=== PATIENT | female | born 1975 | race Two or more races ===

== ENCOUNTER 2017-06-25 05:01 | Day surgery (SDC) | payer OTHER ==
[2017-06-19 12:15] VITALS: BMI 39.1
[2017-06-25] MEDS ORDERED: PROMETHAZINE HCL 25 MG/1 ML VIAL IVPUSH PRN (07:10)
[2017-06-25] MEDS ORDERED: ACETAMINOPHEN INJECTION 100 ML IVPB ONE (07:12)
[2017-06-25] MEDS ORDERED: LACTATED RINGERS SOLUTION 1,000 ML IV SCH ×2 (07:15→11:00)
[2017-06-25] MEDS ORDERED: SUCCINYLCHOLINE CHLORIDE 200 MG/10 ML VIAL ONE (07:21)
[2017-06-25] MEDS ORDERED: ROCURONIUM BROMIDE 50 MG/5 ML VIAL ONE ×2 (07:21→09:14)
[2017-06-25] MEDS ORDERED: LIDOCAINE HCL/PF 2% SDV 5ML VIAL ONE (07:23)
[2017-06-25] MEDS ORDERED: BUPIVACAINE HCL/PF 0.5% (5MG/ML) 10 ML VIAL ONE (07:38)
--- NOTE | 2017-06-25 07:58 | HP ---
History & Physical Update - History History: No Change - Physical Physical: No Change - Assessment Assessment: No Change - Plan Plan: No Change (Severe dysmenorrhea, failed conservative treatment, desires definitive management - for hysterectomy)
[2017-06-25] MEDS ORDERED: MIDAZOLAM HCL 2 MG/2 ML SINGLE DOSE VIAL ONE ×2 (08:11)
[2017-06-25] MEDS ORDERED: DESFLURANE GAS 240 ML BOTTLE IH ONE (08:17)
[2017-06-25] MEDS ORDERED: CEFAZOLIN 2 GM/D5W 50 ML IVPB ONE (08:20)
[2017-06-25] MEDS ORDERED: oxyCODONE HCL 5 MG TABLET PO PRN (08:21)
[2017-06-25] MEDS ORDERED: ACETAMINOPHEN 325 MG TABLET (FP) PO PRN (08:21)
[2017-06-25] MEDS ORDERED: IBUPROFEN 800 MG/8 ML IJ IVPB PRN (08:21)
[2017-06-25] MEDS ORDERED: SENNOSIDES/DOCUSATE COMBO (SENNA PLUS) TABLET (UD) PO PRN (08:21)
[2017-06-25] MEDS ORDERED: ESMOLOL HCL 10 ML ONE (08:24)
[2017-06-25] MEDS ORDERED: ceFAZolin SODIUM 1 GM VIAL ONE (08:25)
[2017-06-25] MEDS ORDERED: DEXAMETHASONE SOD PHOSPHATE 4 MG/1 ML VIAL ONE (08:25)
[2017-06-25] MEDS ORDERED: ceFAZolin SODIUM 1 GM VIAL IVPB ONE (08:45)
[2017-06-25] MEDS ORDERED: GLYCOPYRROLATE 0.2 MG/1 ML VIAL ONE ×2 (09:09)
[2017-06-25] MEDS ORDERED: NEOSTIGMINE METHYLSULFATE 0.5 MG/ML - 10 ML MDV ONE (09:10)
--- NOTE | 2017-06-25 10:57 | OP ---
Operative Note - Note: Operative Date: 06/25/17 Pre-Operative Diagnosis: dysmenorrhea, fibroids Operation: Robotic Assisted TLH, Bilateral Salpingectomy, cystoscopy Findings: fibroid uterus normal b/l tubes and ovaries Post-Operative Diagnosis: Same as Pre-op Surgeon: Bridgett Amin Bulk Intake Worker: Cleo Saleh Anesthesiologist/PAPER REEL OPERATOR: Rosalio John Anesthesia: General Specimens Removed: uterus, cervix, bilateral fallopian tubes Estimated Blood Loss (mls): 400 Operative Report Dictated: Yes
[2017-06-25] MEDS ORDERED: IBUPROFEN 800 MG/8 ML IJ IVPB ONE (11:27)
[2017-06-25] MEDS ORDERED: PCA PUMP KEY 1 EACH EACH ONE (14:19)
[2017-06-25] MEDS: oxyCODONE HCL 5 MG TABLET PO PRN (15:10)
[2017-06-25] MEDS: SIMETHICONE 80 MG TAB.CHEW (FP) PO PRN (19:34)
[2017-06-26] MEDS: SIMETHICONE 80 MG TAB.CHEW (FP) PO PRN ×3 (00:18→10:17)
[2017-06-26] MEDS: oxyCODONE HCL 5 MG TABLET PO PRN ×3 (00:19→10:15)
[2017-06-26] MEDS: IBUPROFEN 600 MG TABLET (FP) PO PRN ×3 (00:28→10:16)
--- NOTE | 2017-06-26 08:09 | PN ---
Progress Note (short form) - Note Progress Note: 41 yo with h/o fibroid uterus, is status post robotic assisted TLH. Patient seen and evaluated, she's out of bed to chair. She c/o incision pain. PE : Chest : CTA, no rales ABD : + incision pain, Wound clean and dry EXT : No calft tenderness A/P : Status post robotic assisted TLH Analgesia as needed Continue post op care
--- NOTE | 2017-06-26 08:15 | PN ---
Progress Note, Physician Chief Complaint: s/p robotic total hysterectomy under general anesthesia History of Present Illness: post op day one - Current Medication List Current Medications: Active Medications Acetaminophen (Tylenol -) 650 mg PO Q4H PRN PRN Reason: FEVER OR PAIN Last Admin: 06/25/17 19:35 Dose: 650 mg Enoxaparin Sodium (Lovenox -) 40 mg SQ DAILY ELIER Lactated Ringer's (Lactated Ringers Solution) 1,000 mls @ 125 mls/hr IV ASDIR ELIER Last Admin: 06/25/17 22:20 Dose: 125 mls/hr Ibuprofen (Caldolor Injection -) 800 mg IVPB Q8H PRN PRN Reason: PAIN OR FEVER Last Admin: 06/25/17 11:30 Dose: 800 mg Ibuprofen (Motrin -) 600 mg PO Q4H PRN PRN Reason: PAIN Last Admin: 06/26/17 06:15 Dose: 600 mg Oxycodone HCl (Roxicodone -) 5 mg PO Q4H PRN PRN Reason: PAIN LEVEL 1-5 Last Admin: 06/26/17 06:14 Dose: 5 mg Oxycodone HCl (Roxicodone -) 10 mg PO Q4H PRN PRN Reason: PAIN LEVEL 6-10 Last Admin: 06/25/17 19:35 Dose: 10 mg Senna/Docusate Sodium (Pericolace -) 2 tablet PO HS PRN PRN Reason: CONSTIPATION Simethicone (Mylicon -) 80 mg PO Q4H PRN PRN Reason: GAS Last Admin: 06/26/17 06:13 Dose: 80 mg - Objective Vital Signs: Vital Signs Temperature 98.1 F 06/26/17 06:00 Pulse Rate 68 06/26/17 06:00 Respiratory Rate 18 06/26/17 06:00 Blood Pressure 126/54 06/26/17 06:00 O2 Sat by Pulse Oximetry (%) 99 06/25/17 21:00 Constitutional: Yes: Well Nourished Cardiovascular: Yes: WNL Respiratory: Yes: WNL Gastrointestinal: Yes: WNL Assessment/Plan no adverse reaction from anesthetic, no nausea or vomiting, pain is well controlled by analgesics as ordered by primary team, dept of anesthesia will sign off care at this time
[2017-06-26 08:22] LABS: BASOPHIL 0.6 % (0-2.0); EOSINOPHIL 0.5 % (0-4.5); MCH 29.8 pg (25.7-33.7); MCHC 33.7 g/dl (32.0-36.0); MEAN CELL VOLUME 88.4 fl (80-96); MEAN PLT VOLUME 7.8 fl (7.5-11.1); NEUTROPHILS 65.2 % (42.8-82.8); PLATELET COUNT 250 K/MM3 (134-434); RDW 13.1 % (11.6-15.6); WHITE BLOOD COUNT 12.1 K/mm3 (4.0-10.0)
[2017-06-26] MEDS ORDERED: ENOXAPARIN NA (PORCINE) 40 MG/0.4 ML DISP.SYRIN SQ SCH (10:00)
--- NOTE | 2017-06-26 10:36 | OP ---
DATE OF OPERATION: 06/25/2017 PREOPERATIVE DIAGNOSES: Dysmenorrhea and fibroids. POSTOPERATIVE DIAGNOSES: Dysmenorrhea and fibroids. PROCEDURE: Robotic-assisted total laparoscopic hysterectomy, bilateral salpingectomy, cystoscopy. SURGEON: Bridgett Up DO LOCAL TRUCK DRIVER: Cleo Saleh MD ANESTHESIA: General by Rosalio John MD. COMPLICATIONS: None. ESTIMATED BLOOD LOSS: 400 mL SPECIMENS REMOVED: Included uterus, cervix, and bilateral fallopian tubes. COUNTS: Sponge, needle, and instrument count reported to be correct. DISPOSITION: Stable to PACU. BRIEF HISTORY AND PROCEDURE: Patient is a 41-year-old female who has been complaining of several years of severely painful periods and fibroids. The patient was given multiple conservative options including hormonal therapy and NSAID therapy for which she failed. The patient expressed desire for definitive management. Patient was counseled on her options and elected to undergo robotic-assisted total hysterectomy, bilateral salpingectomy. Consents were signed in the office. The patient was brought to [facility] on June 25, 2017. Consents were confirmed upon admission . The patient was then taken back to the operating room. She was given general anesthesia and placed in the dorsal lithotomy position. A Boston catheter was placed under sterile conditions, and then, a hard timeout was performed. Next, a V-Care manipulator was placed inside the cervix, and then, attention was turned to the abdomen where an 8-mm infraumbilical incision was created. A Veress needle was placed in the abdomen, and the abdomen was inflated with carbon dioxide gas. Next, the remaining 4 trocars were placed under direct visualization. The robot was then docked. Attention was turned to the left side of the uterus where the utero-ovarian ligament was identified, clamped, ligated, and cut with the vessel-sealer device. The round ligament was then clamped, cut, and ligated with the vessel-sealer device, and the bladder flap was begun on the left side, then extended anteriorly to the midline. Next, the fallopian tube and remainder of utero-ovarian anastamosis was clamped, cut and ligated with the Vessel-sealer device. At this point, the uterine arteries were dissected and skeletonized, then clamped, ligated and cut in several passes with the vessel-sealer device to the level of the uterosacral ligaments. Attention was then turned to the right side where the utero-ovarian anastomosis was identified, clamped, cut, and ligated in several passes with the vessel-sealer device until the complete utero-ovarian artery was ligated and cut. The round ligament on the right side was clamped, ligated, and cut, and the anterior bladder flap was created on the right side, meeting in the midline where the prior bladder flap had been started. The uterine arteries on the right side were skeletonized, clamped , cut, and ligated in several passes with the vessel-sealer device until we reached the level of the uterosacral ligaments. At this point, an anterior colpotomy was made and extended in a circumferential fashion in 360-degree manner until the uterus was detached from its attachments to the cervicovaginal junction. The uterus was removed through the vagina without difficulty. Any areas of bleeding on the vaginal cuff were cauterized with bipolar cautery. The vaginal cuff was reapproximated in a running locked fashion using 0 V-Loc suture. Excellent hemostasis was achieved. Attention was then turned to the fallopian tubes which were elevated and dissected off their attachments to the ovary and the mesosalpinx using the vessel-sealer device. They were removed through the 8-mm ports under direct visualization. All instruments and needles and sponges were removed from the abdomen. Again, hemostasis was appreciated at the surgical site. Bilateral ureters were inspected. The right one was easily visualized and noted to be peristalsing normally and of normal caliber. The left was not easily visualized at this time, and it was decided to perform a cystoscopy at this point. Attention was turned below where a cystoscope was placed inside the bladder. Bladder was instilled with approximately 250 mL of normal saline solution. Bilateral ureteral orifices were noted and were noted to be within normal caliber, and bilateral ureteral jets were appreciated at this time. No bladder trauma was appreciated in a global view of the bladder. The cystoscope was removed at this time. The abdomen was desufflated. The trocars were removed. The skin was reapproximated using 0 Biosyn suture and skin glue. All sponge, needle, and instrument counts were reported correct. varun was awoken from anesthesia in stable condition and taken to PACU in good condition at this time. BRIDGETT UP DO /[id number] [facility]ITAL[facility]
[2017-06-26 11:42] VITALS: BP 117/56; PULSE 83; TEMP 98.9
--- NOTE | 2017-06-26 12:04 | DS ---
Physical Examination Vital Signs: Vital Signs Temperature 98.9 F 06/26/17 10:00 Pulse Rate 83 06/26/17 10:00 Respiratory Rate 20 06/26/17 10:00 Blood Pressure 117/56 06/26/17 10:00 O2 Sat by Pulse Oximetry (%) 99 06/25/17 21:00 Labs: CBC, BMP 06/26/17 07:45 Discharge Summary Reason For Visit: ADENOMYOSISAUB,PELVIC PAIN Procedures: Principal: Robotic Assisted TLH, Bilateral Salpingectomy Hospital Course: Pt underwent uncomplicated procedure (see dictated report). On post op day 1 patient was tolerating diet, ambulating, voiding and passing flatus. Pt was discharged home in stable condition on post operative day 1. Condition: Good - Instructions Diet, Activity, Other Instructions: Physical activity Resume your normal everyday activity as tolerated but no heavy lifting or strenuous exercise until seen by your surgeon. You may walk unlimited amounts and climb stairs. You may resume driving the car when you feel safe and comfortable behind the wheel - usually about 2 weeks. No sexual activity as instructed by Dr. Amin for at least 8 weeks. Wound care If you have surgical glue covering your incisions, leave it in place. It will peel off in the next 7 to 10 days. Do Not Peel tit off. You may shower the day after surgery. If there is glue present on the skin, you may shower over it. Diet There are no dietary restrictions. Eat healthy, high-fiber foods. Drink 6 to 8 glasses of liquid each day. This will assist in keeping your bowels regular. Pain management You may take Tylenol or Ibuprofen (for example, Motrin, Advil etc.) for mild pain. If any prescription medication is ordered to your pharmacy it should be taken as prescribed for moderate to severe pain. Call Dr. Amin for any of the following: Severe pain not relieved by medication Fever of 101 or higher Excessive bleeding or drainage on dressing Inability to urinate Call the office at [phone] for an appointment in 14 days. Referrals: Bridgett Amin DO [Staff Physician] - Disposition: HOME - Home Medications Comprehensive Discharge Medication List: Ambulatory Orders Ibuprofen [Motrin -] 800 mg PO QID PRN 06/19/17 Ibuprofen [Motrin -] 600 mg PO QID PRN #28 tablet 06/26/17 Oxycodone HCl/Acetaminophen [Percocet 5-325 mg Tablet -] 1 tab PO Q4H #30 tablet MDD 6 06/26/17
--- NOTE | 2017-06-26 16:05 | PATH ---
Surgical Pathology Report Patient Name: FLACO COOPER [facility]. Rec. #: [id number] /Age/Gender: 1975 (Age: 41) / F Account: [id number] Location: AMBULATORY SURG Taken: 06/25/2017 Received: 06/25/2017 Reported: 06/26/2017 Physicians: Bridgett Amin M.D. Specimen(s) Received A: UTERUS AND CERVIX B: RIGHT FALLOPIAN TUBE C: LEFT FALLOPIAN TUBE Clinical History Pelvic pain Final Diagnosis A. UTERUS, CERVIX, LAPAROSCOPIC TOTAL HYSTERECTOMY: CERVIX: CHRONIC CERVICITIS. ENDOMETRIUM: SECRETORY. MYOMETRIUM: ADENOMYOSIS, LEIOMYOMATA (LARGEST 2.7 CM). UTERINE SEROSA: WITHOUT SIGNIFICANT PATHOLOGIC CHANGES. B. FALLOPIAN TUBE, RIGHT, SALPINGECTOMY: BENIGN FALLOPIAN TUBE WITH SMALL PARATUBAL CYST AND FOCAL FIBRINOHEMORRHAGIC ADHESIONS. C. FALLOPIAN TUBE, LEFT, SALPINGECTOMY: FRAGMENTS OF BENIGN FALLOPIAN TUBE WITH FOCAL FIBROVASCULAR ADHESIONS. Electronically Signed See Serrano M.D. Gross Description A. Received in formalin labeled "uterus, cervix" is a 213 g uterus with an attached cervix and no attached adnexa. The specimen measures 11.7 cm from superior to inferior, 6.5 cm from left to right and 5.5 cm from anterior to posterior. The serosa is sanders-pink with focal subserosal nodules. The attached cervix measures 3.5 cm in length and averages 3.2 cm in diameter. The ectocervix is pink-sanders, smooth and glistening. The endocervix is unremarkable. The endometrial cavity measures 5.5 cm in length and 3.7 cm from cornu to cornu. The endometrium is sanders and lush, measuring up to 0.6 cm in thickness. There are multiple intramural nodules present, measuring up to 2.7 cm in greatest dimension. The cut surface of the subserosal and intramural nodules is sanders, firm to rubbery and displays a whorled architecture. No areas of hemorrhage or necrosis are identified. The myometrium is sanders-pink and averages 2.2 cm in thickness. Clinical Director sections are submitted in 9 cassettes as follows: 1-anterior cervix; 2-posterior cervix; 8-7-ocwqnqoe endomyometrium; 5-7-zawdnkfzo endomyometrium; 7-subserosal nodules; 8-2-kciohltfaa nodules. B. Received in formalin labeled "right fallopian tube" is a 2.2 cm in length fimbriated portion of fallopian tube. The outer surface is sanders-pink. Sectioning reveals a pinpoint lumen. Clinical Director sections are submitted in 2 cassettes as follows: 1-fimbria; 2-cross sections of fallopian tube. C. Received in formalin labeled "left fallopian tube" are 2 portions of fallopian tube measuring 1.4 and 2.2 cm in length. No fimbria are identified. The outer surfaces are sanders-pink. Sectioning reveals a pinpoint lumen. Clinical Director sections are submitted in one cassette. 06/25/2017 [facility]06/25/2017
== END 2017-06-26 12:36 | disposition home or self-care (01) ==
LOC: JASUSAT 05:01 → J3W 14:10 → JASUSAT 06-26 12:36
PROVIDERS: ATTEND Obstetrics & Gynecology
PROC: 0UT2FZZ Resection of Bilateral Ovaries, Via Natural or Artificial Opening With Percutaneous Endoscopic Assistance (ICD-10-PCS; 2017-06-25)
PROC: 0UT7FZZ Resection of Bilateral Fallopian Tubes, Via Natural or Artificial Opening With Percutaneous Endoscopic Assistance (ICD-10-PCS; 2017-06-25)
PROC: 8E0W4CZ Robotic Assisted Procedure of Trunk Region, Percutaneous Endoscopic Approach (ICD-10-PCS; 2017-06-25)
PROC: 0UT9FZZ Resection of Uterus, Via Natural or Artificial Opening With Percutaneous Endoscopic Assistance (ICD-10-PCS; principal; 2017-06-25 08:00)
PROC: 0UTC7ZZ Resection of Cervix, Via Natural or Artificial Opening (ICD-10-PCS; 2017-06-25 08:00)
DX: N94.6 Dysmenorrhea, unspecified (principal); D25.9 Leiomyoma of uterus, unspecified
CPT/HCPCS: 58552; S2900; 36415; 84703; 85025; 86850; 86900; 86901; 88305-TC; 88307-TC; 94760

== ENCOUNTER 2019-04-20 17:29 | Emergency (ER) | payer OTHER | END 2019-04-20 23:47 | disposition home or self-care (01) | LOC: JER 17:29 ==

== ENCOUNTER 2019-09-10 21:10 | Emergency (ER) | payer OTHER ==
[2019-09-10] MEDS ORDERED: ALBUTEROL SO4 2.5/IPRATROPIUM 0.5 INH SOL 3 ML VIAL.NEB. NEB ONE ×2 (21:13→21:21)
--- NOTE | 2019-09-10 21:13 | PDOC ---
Rapid Medical Evaluation Time Seen by Provider: 09/10/19 21:12 Medical Evaluation: Allergies Allergy/AdvReac Type Severity Reaction Status Date / Time No Known Allergies Allergy Verified 04/20/19 17:34 09/10/19 21:12 I have performed a brief in-person evaluation of this patient. The patient presents with a chief complaint of: cough Pertinent physical exam findings:stable and in NAD, non-focal I have ordered the following: duoneb The patient will proceed to the ED for further evaluation.
[2019-09-10 21:18] VITALS: BP 109/66; PULSE 90; TEMP 98.9; BMI 33.4
--- NOTE | 2019-09-10 23:04 | PDOC ---
History of Present Illness - General Chief Complaint: Cold Symptoms Stated Complaint: COUGH Time Seen by Provider: 09/10/19 21:12 - History of Present Illness Initial Comments: 09/10/19 23:03 44-year-old female presents for evaluation of cough and body aches x1 day Past History - Past Medical History Allergies/Adverse Reactions: Allergies Allergy/AdvReac Type Severity Reaction Status Date / Time No Known Allergies Allergy Verified 09/10/19 21:12 Home Medications: Ambulatory Orders Ibuprofen [Motrin -] 800 mg PO QID PRN 06/19/17 Ibuprofen [Motrin -] 600 mg PO QID PRN #28 tablet 06/26/17 Oxycodone HCl/Acetaminophen [Percocet 5-325 mg Tablet -] 1 tab PO Q4H #30 tablet MDD 6 06/26/17 Asthma: Yes (bronchitis) COPD: No Disorders: No Thyroid Disease: No - Surgical History Appendectomy: Yes Orthopedic Surgery: No - Psycho Social/Smoking Cessation Hx Smoking History: Former smoker Have you smoked in the past 12 months: No Number of Cigarettes Smoked Daily: 10 If you are a former smoker, when did you quit?: 5YRS Information on smoking cessation initiated: No Hx Alcohol Use: No Drug/Substance Use Hx: No Substance Use Type: None Hx Substance Use Treatment: No Review of Systems - Review of Systems Constitutional: No: Fever Respiratory: Yes: Cough *Physical Exam - Vital Signs Last Vital Signs Temp Pulse Resp BP Pulse Ox 98.9 F 90 24 H 109/66 96 09/10/19 21:12 09/10/19 21:12 09/10/19 21:12 09/10/19 21:12 09/10/19 21:12 - Physical Exam Comments: 09/10/19 23:03 GENERAL: The patient is awake, alert, and fully oriented, in no acute distress. HEAD: Normal with no signs of trauma. EYES: sclera anicteric, conjunctiva clear. ENT: Ears normal NECK: Normal range of motion LUNGS: Breath sounds equal, clear to auscultation bilaterally. No wheezes, and no crackles. HEART: S1 and S2 without murmur, rub or gallop. ABDOMEN: Soft, nontender, normoactive bowel sounds. No guarding, no rebound. No masses. EXTREMITIES: Normal range of motion, no edema. No clubbing or cyanosis. No cords, erythema, or tenderness. NEUROLOGICAL: Cranial nerves II through XII grossly intact. Normal speech, normal gait. PSYCH: Normal mood, normal affect. SKIN: Warm, Dry, normal turgor, no rashes or lesions noted. ED Treatment Course - RADIOLOGY Radiology Studies Ordered: Category Date Time Status CHEST PA & LAT [RAD] Stat Radiology 09/10/19 22:28 Ordered - Medications Given in the ED: ED Medications Discontinued Medications Generic Name Dose Route Start Last Admin Trade Name Freq PRN Reason Stop Dose Admin Albuterol/Ipratropium 1 amp 09/10/19 21:13 09/10/19 21:25 Duoneb - NEB 09/10/19 21:14 1 amp ONCE ONE Administration Medical Decision Making - Medical Decision Making 09/10/19 23:03 Negative flu no infiltrate on radiograph of chest most likely upper respiratory infection follow-up with PCP Discharge - Discharge Information Problems reviewed: Yes Clinical Impression/Diagnosis: Upper respiratory infection, acute Condition: Stable Disposition: HOME - Admission No - Follow up/Referral Referrals: Eduardo Hoover MD [Primary Care Provider] - - Patient Discharge Instructions Patient Printed Discharge Instructions: DI for Viral Upper Respiratory Infection -- Adult Additional Instructions: Tylenol and Motrin for body aches. Your flu was negative. Chest x-ray was negative for pneumonia. Follow-up with your primary care physician without fail in 1 to 2 days for further evaluation and treatment options and return to the emergency room should symptoms worsen. - Post Discharge Activity
== END 2019-09-10 23:21 | disposition home or self-care (01) ==
LOC: JERFT 21:10
PROC: 3E0F7GC Introduction of Other Therapeutic Substance into Respiratory Tract, Via Natural or Artificial Opening (ICD-10-PCS; principal; 2019-09-10)
DX: J06.9 Acute upper respiratory infection, unspecified (principal); Z87.891 Personal history of nicotine dependence; J40 Bronchitis, not specified as acute or chronic
CPT/HCPCS: 71046-TC-FY; 87804; 94640; 99281-25

== ENCOUNTER 2019-12-26 19:40 | Emergency (ER) | payer OTHER ==
[2019-12-26] MEDS ORDERED: predniSONE 20 MG TABLET (UD) PO ONE (19:53)
--- NOTE | 2019-12-26 19:53 | PDOC ---
Rapid Medical Evaluation Chief Complaint: Respiratory Time Seen by Provider: 12/26/19 19:50 Medical Evaluation: Allergies Allergy/AdvReac Type Severity Reaction Status Date / Time No Known Allergies Allergy Verified 09/10/19 21:12 12/26/19 19:51 I have performed a brief in-person evaluation of this patient. The patient presents with a chief complaint of:h/o asthma, here w/ URI sxs w/ sob c/w her asthma per pt/ using asthma meds w/ no relief. Former smoker (quit 8 yrs ago after ~13 years) Pertinent physical exam findings:Wheezing on exam I have ordered the following:duonebs/pred The patient will proceed to the ED for further evaluation. Discharge Disposition - Diagnosis Asthma Qualifiers: Asthma severity: unspecified severity Asthma persistence: unspecified Asthma complication type: with acute exacerbation Qualified Code(s): J45.901 - Unspecified asthma with (acute) exacerbation - Referrals - Patient Instructions - Post Discharge Activity
[2019-12-26 20:01] VITALS: TEMP 99.5; BMI 37.2
[2019-12-26] MEDS ORDERED: predniSONE 20 MG TABLET (UD) ONE (20:42)
[2019-12-26] MEDS ORDERED: ALBUTEROL SO4 2.5/IPRATROPIUM 0.5 INH SOL 3 ML VIAL.NEB. NEB ONE (20:42)
--- NOTE | 2019-12-26 20:45 | PDOC ---
History of Present Illness - General Chief Complaint: Respiratory Stated Complaint: COUGH Time Seen by Provider: 12/26/19 19:50 - History of Present Illness Initial Comments: 12/26/19 20:44 44-year-old female with a past medical history of asthma presents for evaluation of cough and fever x4 days Past History - Past Medical History Allergies/Adverse Reactions: Allergies Allergy/AdvReac Type Severity Reaction Status Date / Time No Known Allergies Allergy Verified 12/26/19 19:55 Home Medications: Ambulatory Orders Ibuprofen [Motrin -] 800 mg PO QID PRN 06/19/17 Ibuprofen [Motrin -] 600 mg PO QID PRN #28 tablet 06/26/17 Oxycodone HCl/Acetaminophen [Percocet 5-325 mg Tablet -] 1 tab PO Q4H #30 tablet MDD 6 06/26/17 Albuterol 0.083% Nebulizer Sary [Ventolin 0.083% Nebulizer Soln -] 1 neb NEB Q4H PRN #20 vial 09/10/19 Nebulizer and Compressor [Bison Choice Nebulizer] 1 each ASDIR #1 each 09/10 Azithromycin [Zithromax -] 250 mg PO UTDICT #6 tab 12/26/19 Guaifenesin Dm [Mucinex Dm -] 1 tab PO BID #60 tab.er.12h 12/26/19 predniSONE [Deltasone -] 40 mg PO DAILY #14 tablet 12/26/19 Asthma: Yes (bronchitis) COPD: No Disorders: No Thyroid Disease: No - Surgical History Appendectomy: Yes Orthopedic Surgery: No - Psycho Social/Smoking Cessation Hx Smoking History: Former smoker Have you smoked in the past 12 months: No Number of Cigarettes Smoked Daily: 10 If you are a former smoker, when did you quit?: 8 years Information on smoking cessation initiated: No Hx Alcohol Use: No Drug/Substance Use Hx: No Substance Use Type: None Hx Substance Use Treatment: No Review of Systems - Review of Systems Constitutional: Yes: Chills, Diaphoresis, Fever, Malaise, Night Sweats Respiratory: Yes: Cough *Physical Exam - Vital Signs Last Vital Signs Temp Pulse Resp BP Pulse Ox 99.5 F 93 H 20 127/74 98 12/26/19 19:51 12/26/19 19:51 12/26/19 19:51 12/26/19 19:51 12/26/19 19:51 - Physical Exam 12/26/19 20:45 GENERAL: The patient is awake, alert, and fully oriented, in no acute distress. HEAD: Normal with no signs of trauma. EYES: sclera anicteric, conjunctiva clear. ENT: Ears normal tympanic membranes normal oropharynx clear uvula midline NECK: Normal range of motion LUNGS: Diffuse bilateral wheezing HEART: S1 and S2 without murmur, rub or gallop. ABDOMEN: Soft, nontender, normoactive bowel sounds. No guarding, no rebound. No masses. EXTREMITIES: Normal range of motion, no edema. No clubbing or cyanosis. No cords, erythema, or tenderness. NEUROLOGICAL: Cranial nerves II through XII grossly intact. PSYCH: Normal mood, normal affect. SKIN: Warm, Dry, normal turgor, no rashes or lesions noted. ED Treatment Course - RADIOLOGY Radiology Studies Ordered: Category Date Time Status CHEST PA & LAT [RAD] Stat Radiology 12/26/19 20:24 Taken Medical Decision Making - Medical Decision Making 12/26/19 20:45 No discrete infiltrate on chest x-ray. Will start the DuoNeb treatments providing she clears up I will discharge her with Zithromax Mucinex DM and prednisone 12/26/19 22:19 No wheezing on reexamination after DuoNeb's. Mild bibasilar rhonchi Discharge - Discharge Information Problems reviewed: Yes Clinical Impression/Diagnosis: Bronchitis Asthma Qualifiers: Asthma severity: unspecified severity Asthma persistence: unspecified Asthma complication type: with acute exacerbation Qualified Code(s): J45.901 - Unspecified asthma with (acute) exacerbation Condition: Stable Disposition: HOME - Admission No - Additional Discharge Information Prescriptions: Azithromycin [Zithromax -] 250 mg PO UTDICT #6 tab Guaifenesin Dm [Mucinex Dm -] 1 tab PO BID #60 tab.er.12h predniSONE [Deltasone -] 40 mg PO DAILY #14 tablet - Follow up/Referral Referrals: Eduardo Hoover MD [Primary Care Provider] - - Patient Discharge Instructions Patient Printed Discharge Instructions: DI for Acute Bronchitis Additional Instructions: Please take the antibiotics the Mucinex and the prednisone as directed. Return to the emergency room for worsening symptoms your influenza swab was negative today. Follow-up without fail with your primary care physician in 1 to 2 days for further evaluation and treatment options. - Post Discharge Activity
[2019-12-26] MEDS: ALBUTEROL SO4 2.5/IPRATROPIUM 0.5 INH SOL 3 ML VIAL.NEB. NEB SCH ×2 (20:47→20:48)
[2019-12-26 23:26] VITALS: BP 122/87; PULSE 99
== END 2019-12-26 23:00 | disposition home or self-care (01) ==
LOC: JERFT 19:40
PROC: 3E0F7GC Introduction of Other Therapeutic Substance into Respiratory Tract, Via Natural or Artificial Opening (ICD-10-PCS; principal; 2019-12-26)
DX: J06.9 Acute upper respiratory infection, unspecified (principal); J45.901 Unspecified asthma with (acute) exacerbation; Z87.891 Personal history of nicotine dependence
CPT/HCPCS: 71046-TC-FY; 87804; 94640; 99281-25

== ENCOUNTER 2019-12-27 21:04 | Emergency (ER) | payer OTHER ==
[2019-12-27 21:13] VITALS: BP 106/52; PULSE 79; TEMP 99.1; BMI 38.3
[2019-12-27] MEDS ORDERED: ACETAMINOPHEN 325 MG TABLET (FP) PO ONE (22:18)
--- NOTE | 2019-12-27 22:18 | PDOC ---
History of Present Illness - General Chief Complaint: Cold Symptoms Stated Complaint: COUGH Time Seen by Provider: 12/27/19 22:06 History Source: Patient Exam Limitations: No Limitations - History of Present Illness Initial Comments: 12/27/19 22:44 Chief complaint: Asthma Patient 44-year-old female with asthma who was seen in the ER yesterday, for URI. Had chest x-ray, had nebulizer, put on steroids, Zithromax. Patient was given Mucinex DM. Patient returns tonight because the albuterol makes her jittery, prednisone makes her jittery and she feels worse. She does not want to use the meds because they make her feel worse. She has not had this problem before. GENERAL/CONSTITUTIONAL: No fever, weakness. dizziness HEAD, EYES, EARS, NOSE AND THROAT: No change in vision. No ear pain or discharge. No sore throat. CARDIOVASCULAR: No chest pain RESPIRATORY: No shortness of breath + cough GASTROINTESTINAL: No pain, nausea, vomiting, diarrhea or constipation GENITOURINARY: No dysuria MUSCULOSKELETAL: No neck or back pain SKIN: No rash NEUROLOGIC: No headache, vertigo, loss of consciousness, or loss of sensation. GENERAL: The patient is awake, alert, and fully oriented, in no acute distress. HEAD: Normal with no signs of trauma. EYES: Pupils equal, round and reactive to light, sclera anicteric, conjunctiva clear. ENT: + Clear rhinorrhea pharynx: no erythema, no exudate, uvula midline NECK: supple CHEST: clear, nontender, rr ABD: soft, nontender BACK: no tenderness or signs of injury EXTREMITIES: Normal range of motion, no edema. NEUROLOGICAL: Normal speech, normal gait. SKIN: Warm, Dry Past History - Past Medical History Allergies/Adverse Reactions: Allergies Allergy/AdvReac Type Severity Reaction Status Date / Time No Known Allergies Allergy Verified 12/26/19 19:55 Home Medications: Ambulatory Orders Ibuprofen [Motrin -] 800 mg PO QID PRN 06/19/17 Ibuprofen [Motrin -] 600 mg PO QID PRN #28 tablet 06/26/17 Oxycodone HCl/Acetaminophen [Percocet 5-325 mg Tablet -] 1 tab PO Q4H #30 tablet MDD 6 06/26/17 Albuterol 0.083% Nebulizer Sary [Ventolin 0.083% Nebulizer Soln -] 1 neb NEB Q4H PRN #20 vial 09/10/19 Nebulizer and Compressor [Turner Choice Nebulizer] 1 each ASDIR #1 each 09/10 Albuterol 0.083% Nebulizer Sary [Ventolin 0.083% Nebulizer Soln -] 1 neb NEB Q4H PRN #20 vial 12/26/19 Azithromycin [Zithromax -] 250 mg PO UTDICT #6 tab 12/26/19 Guaifenesin Dm [Mucinex Dm -] 1 tab PO BID #60 tab.er.12h 12/26/19 predniSONE [Deltasone -] 40 mg PO DAILY #14 tablet 12/26/19 Hydrocodone Bit/Homatrop Me-Br [Hydrocodone-Homatropine Syrup] 5 ml PO HS PRN # 60 ml MDD 2 12/27/19 Asthma: Yes (bronchitis) COPD: No Disorders: No Thyroid Disease: No - Surgical History Appendectomy: Yes Orthopedic Surgery: No - Psycho Social/Smoking Cessation Hx Smoking History: Former smoker Have you smoked in the past 12 months: No Number of Cigarettes Smoked Daily: 10 If you are a former smoker, when did you quit?: 5YRS Information on smoking cessation initiated: No Hx Alcohol Use: No Drug/Substance Use Hx: No Substance Use Type: None Hx Substance Use Treatment: No *Physical Exam - Vital Signs Last Vital Signs Temp Pulse Resp BP Pulse Ox 99.1 F 79 19 106/52 L 96 12/27/19 21:08 12/27/19 21:08 12/27/19 21:08 12/27/19 21:08 12/27/19 21:08 Medical Decision Making - Medical Decision Making 12/27/19 22:31 44-year-old female with asthma who was seen yesterday, was given Zithromax, albuterol, Mucinex dm, prednisone. Patient states the albuterol and the prednisone are making her jittery. She does not want to use them. She feels worse today. Patient is not wheezing. Patient has no signs of respiratory distress, she has no fever. She has a very runny nose and cough. 12/27/19 22:45 Discussed with patient, recommended that she use half the dose of albuterol, mixed with saline to decrease the jitteriness. As she is not wheezing now and she can probably use the medication this way. I also recommended that she take the prednisone 20 mg every 12 hours for maximum of 5 days. She will discontinue the Mucinex and take Hycodan at bedtime It was fully explained to patient that cough medicine does not treat asthma, that she needs to use her albuterol to treat the wheezing. The cough medicine is just to help her with the cough when she is not wheezing. She is aware that treating the wheezing with the cough medicine is dangerous. Discussed issues, findings, results, applicable medications and treatments and follow-up. All these were understood and all questions were answered 12/27/19 22:52 Discharge - Discharge Information Problems reviewed: Yes Clinical Impression/Diagnosis: Upper respiratory infection, acute Asthma Qualifiers: Asthma severity: mild Asthma persistence: unspecified Asthma complication type : uncomplicated Qualified Code(s): J45.909 - Unspecified asthma, uncomplicated Condition: Stable Disposition: HOME - Admission No - Additional Discharge Information Prescriptions: Hydrocodone Bit/Homatrop Me-Br [Hydrocodone-Homatropine Syrup] 5 ml PO HS PRN # 60 ml MDD 2 PRN Reason: Cough - Follow up/Referral Referrals: Eduardo Hoover MD [Primary Care Provider] - - Patient Discharge Instructions Patient Printed Discharge Instructions: DI for Asthma -- Adult, DI for Acute Bronchitis Additional Instructions: Use half of the albuterol dose, mixed with the saline in your nebulizer You can take the prednisone in 2 doses, you can take it 20 mg, 1 tablet every 12 hours for a total of 5 days Instead of the Mucinex DM you can take the Hycodan as prescribed Return to the ER if worse otherwise follow-up with your doctor this week - Post Discharge Activity Work/Back to School Note: Back to Work
[2019-12-27] MEDS ORDERED: ACETAMINOPHEN 325 MG TABLET (FP) ONE (22:31)
== END 2019-12-27 22:47 | disposition home or self-care (01) ==
LOC: JERFT 21:04
DX: J06.9 Acute upper respiratory infection, unspecified (principal); J45.909 Unspecified asthma, uncomplicated; Z87.891 Personal history of nicotine dependence
CPT/HCPCS: 99281-25

== ENCOUNTER 2024-04-30 12:19 | Emergency (ER) | payer OTHER ==
[2024-04-30 12:31] VITALS: BMI 36.0
[2024-04-30] MEDS ORDERED: KETOROLAC TROMETHAMINE 30 MG/1 ML VIAL ONE (13:12)
[2024-04-30] MEDS: KETOROLAC TROMETHAMINE 30 MG/1 ML VIAL IVPUSH ONE (13:16)
[2024-04-30 13:24] LABS: HEMATOCRIT 39.1 % (32.4-45.2); HEMOGLOBIN 13.3 GM/dL (10.7-15.3); MCH 30.6 pg (25.7-33.7); MEAN CELL VOLUME 90.1 fl (80-96); PLATELET COUNT 222 10^3/uL (134-434); RBC 4.35 M/mm3 (3.60-5.2); RDW 12.7 % (11.6-15.6); WHITE BLOOD COUNT 12.5 K/mm3 (4.0-10.0)
[2024-04-30 13:24] LABS: URINE APPEARANCE CLEAR; URINE BILIRUBIN NEGATIVE (NEGATIVE); URINE COLOR YELLOW; URINE GLUCOSE (UA) NEGATIVE (NEGATIVE); URINE KETONE NEGATIVE (NEGATIVE); URINE LEUK ESTERASE NEGATIVE (NEGATIVE); URINE NITRITE NEGATIVE (NEGATIVE); URINE PROTEIN NEGATIVE (NEGATIVE); URINE UROBILINOGEN 0.2 mg/dL (0.2-1.0)
[2024-04-30] MEDS: SODIUM CHLORIDE 1,000 ML IV STA ×2 (13:24→16:21)
[2024-04-30 13:48] LABS: HCG,QUALITATIVE URINE Negative
[2024-04-30] MEDS ORDERED: morphine SULFATE 4 MG/ML VIAL ONE (13:50)
[2024-04-30] MEDS ORDERED: ONDANSETRON 4 MG/2 ML VIAL ONE (13:51)
[2024-04-30 13:55] LABS: ANISOCYTOSIS 0; MACROCYTOSIS 0
[2024-04-30] MEDS ORDERED: FAMOTIDINE 20 MG/50 ML IVPB 20 MG/50 ML MG IVPB ONE (13:55)
[2024-04-30] MEDS: FAMOTIDINE 20 MG/50 ML IVPB 20 MG/50 ML MG IVPB ONE (14:07)
[2024-04-30] MEDS: ONDANSETRON 4 MG/2 ML VIAL IVPUSH ONE (14:07)
[2024-04-30 14:08] LABS: POTASSIUM 3.8 mmol/L (3.5-5.1)
[2024-04-30 14:10] LABS: CALCIUM 9.4 mg/dL (8.5-10.1)
[2024-04-30 14:11] LABS: ALBUMIN 3.6 g/dl (3.4-5.0)
[2024-04-30 14:14] LABS: CREATININE 0.6 mg/dL (0.55-1.3)
[2024-04-30 14:16] LABS: BILIRUBIN,TOTAL 0.4 mg/dL (0.2-1)
[2024-04-30 14:38] VITALS: BP 114/59; PULSE 84; RESP 20; TEMP 99.4
[2024-04-30] MEDS ORDERED: MECLIZINE HCL 25 MG TABLET (FP) ONE (16:14)
[2024-04-30] MEDS: MECLIZINE HCL 25 MG TABLET (FP) PO ONE (16:21)
== END 2024-04-30 17:51 | disposition home or self-care (01) ==
LOC: JER 12:19
PROC: 3E033GC Introduction of Other Therapeutic Substance into Peripheral Vein, Percutaneous Approach (ICD-10-PCS; principal; 2024-04-30)
PROC: 3E033GC Introduction of Other Therapeutic Substance into Peripheral Vein, Percutaneous Approach (ICD-10-PCS; 2024-04-30)
PROC: 3E033GC Introduction of Other Therapeutic Substance into Peripheral Vein, Percutaneous Approach (ICD-10-PCS; 2024-04-30)
PROC: 3E0337Z Introduction of Electrolytic and Water Balance Substance into Peripheral Vein, Percutaneous Approach (ICD-10-PCS; 2024-04-30)
PROC: 3E0337Z Introduction of Electrolytic and Water Balance Substance into Peripheral Vein, Percutaneous Approach (ICD-10-PCS; 2024-04-30)
DX: R53.1 Weakness (principal); R11.2 Nausea with vomiting, unspecified; R50.9 Fever, unspecified; K52.9 Noninfective gastroenteritis and colitis, unspecified; Z20.822 Contact with and (suspected) exposure to COVID-19
CPT/HCPCS: 0241U-QW; 36415; 71045-TC-FY; 74177-TC; 80053; 81003; 83605; 84703; 85025; 87040; 87086; 87651; 93005; 93010; 99285-25; Q9967

== ENCOUNTER 2024-05-01 19:59 | Emergency (ER) | payer OTHER ==
[2024-05-01 20:19] VITALS: BP 118/53; PULSE 66; RESP 19; TEMP 99.4; BMI 36.0
[2024-05-01] MEDS ORDERED: LIDOCAINE VISCOUS 2% ORAL/TOP 15 ML UNIT-DOSE CUP ONE (21:26)
[2024-05-01] MEDS ORDERED: MAG HYDROX/AL HYDROX/SIMETH 30 ML UNIT-DOSE CUP ONE ×2 (21:27→21:32)
[2024-05-01] MEDS ORDERED: METOCLOPRAMIDE HCL INJECTION 10 MG/2 ML VIAL ONE (21:27)
[2024-05-01] MEDS ORDERED: ACETAMINOPHEN INJECTION 100 ML IVPB ONE (21:27)
[2024-05-01] MEDS ORDERED: ALBUTEROL SO4 2.5/IPRATROPIUM 0.5 INH SOL 3 ML VIAL.NEB. NEB ONE (21:35)
[2024-05-01] MEDS ORDERED: DEXAMETHASONE SOD PHOSPHATE 10 MG/1 ML VIAL ONE (21:35)
[2024-05-01] MEDS: MAG HYDROX/AL HYDROX/SIMETH -MYLANTA- ORAL SUSPENSION PO ONE (21:58)
[2024-05-01] MEDS: LIDOCAINE VISCOUS 2% ORAL/TOP 15 ML UNIT-DOSE CUP MM ONE (21:58)
[2024-05-01] MEDS: ALBUTEROL SO4 2.5/IPRATROPIUM 0.5 INH SOL 3 ML VIAL.NEB. NEB ONE (21:59)
[2024-05-01] MEDS: SODIUM CHLORIDE 0.9% 500 ML INFUS.BAG IV ONE (21:59)
[2024-05-01] MEDS: DEXAMETHASONE LIQUID 0.5 MG/5 ML PO ONE (21:59)
[2024-05-01] MEDS: ACETAMINOPHEN 1000 MG/100 ML BAG IVPB ONE (21:59)
[2024-05-01] MEDS: METOCLOPRAMIDE HCL INJECTION 10 MG/2 ML VIAL IVPUSH ONE (21:59)
[2024-05-01] MEDS ORDERED: PSEUDOEPHEDRINE HCL 60 MG TABLET ONE (22:02)
[2024-05-01] MEDS: PSEUDOEPHEDRINE HCL 60 MG TABLET PO ONE (22:06)
[2024-05-01 22:15] LABS: BASO % 0.5 % (0-2.0); EOS % 0.7 % (0-4.5); HEMATOCRIT 38.7 % (32.4-45.2); HEMOGLOBIN 13.1 GM/dL (10.7-15.3); LYMPH % 15.2 % (8-40); MCH 30.6 pg (25.7-33.7); MCHC 33.8 g/dl (32.0-36.0); MEAN CELL VOLUME 90.4 fl (80-96); MEAN PLT VOLUME 8.1 fl (7.5-11.1); MONO % 8.5 % (3.8-10.2); NEUT % 75.1 % (42.8-82.8); PLATELET COUNT 213 10^3/uL (134-434); RBC 4.28 M/mm3 (3.60-5.2); WHITE BLOOD COUNT 12.4 K/mm3 (4.0-10.0)
[2024-05-01 22:33] LABS: POTASSIUM 3.9 mmol/L (3.5-5.1)
[2024-05-01 22:36] LABS: ALBUMIN 3.7 g/dl (3.4-5.0); BLOOD UREA NITROGEN 6.9 mg/dL (7-18)
[2024-05-01 22:39] LABS: CREATININE 0.6 mg/dL (0.55-1.3)
[2024-05-01 22:41] LABS: BILIRUBIN,TOTAL 0.4 mg/dL (0.2-1)
== END 2024-05-02 01:18 | disposition home or self-care (01) ==
LOC: JERFT 19:59 → JER 19:59
PROC: 3E033NZ Introduction of Analgesics, Hypnotics, Sedatives into Peripheral Vein, Percutaneous Approach (ICD-10-PCS; principal; 2024-05-01)
PROC: 3E033GC Introduction of Other Therapeutic Substance into Peripheral Vein, Percutaneous Approach (ICD-10-PCS; 2024-05-01)
PROC: 3E0F7GC Introduction of Other Therapeutic Substance into Respiratory Tract, Via Natural or Artificial Opening (ICD-10-PCS; 2024-05-01)
DX: R05.9 Cough, unspecified (principal); R51.9 Headache, unspecified; R50.9 Fever, unspecified; R09.81 Nasal congestion; R10.11 Right upper quadrant pain; R11.0 Nausea; J02.9 Acute pharyngitis, unspecified; J06.9 Acute upper respiratory infection, unspecified; Z20.822 Contact with and (suspected) exposure to COVID-19
CPT/HCPCS: 0241U-QW; 36415; 71046-TC-FY; 76705-TC; 80053; 85025; 87070; 87651; 99285-25; J0131

== ENCOUNTER 2024-06-16 05:57 | Day surgery (SDC) | payer OTHER ==
[2024-06-13 14:02] VITALS: BMI 36.6
[2024-06-16] MEDS ORDERED: oxyCODONE HCL 5 MG TABLET PO PRN (10:56)
[2024-06-16] MEDS ORDERED: LACTATED RINGERS SOLUTION 1,000 ML IV SCH (11:00)
[2024-06-16] MEDS ORDERED: ceFAZolin SODIUM 1 GM VIAL ONE (14:15)
[2024-06-16] MEDS ORDERED: KETOROLAC TROMETHAMINE 30 MG/1 ML VIAL ONE (14:15)
[2024-06-16] MEDS ORDERED: DEXAMETHASONE SOD PHOSPHATE 4 MG/1 ML VIAL ONE (14:15)
[2024-06-16] MEDS ORDERED: LIDOCAINE HCL/PF 2% SDV 5ML VIAL ONE (14:15)
[2024-06-16] MEDS ORDERED: ONDANSETRON 4 MG/2 ML VIAL ONE (14:15)
[2024-06-16] MEDS ORDERED: MIDAZOLAM HCL 2 MG/2 ML SINGLE DOSE VIAL ONE (14:16)
[2024-06-16] MEDS ORDERED: PROPOFOL 20 ML ONE ×2 (14:16→14:34)
[2024-06-16] MEDS: ceFAZolin SODIUM 1 GM VIAL IVPB ONE (14:45)
[2024-06-16] MEDS: BUPIVACAINE HCL/PF 0.5% (5 MG/ML) 30 ML VIAL IJ ONE (14:58)
[2024-06-16] MEDS: LIDOCAINE HCL 1%, 10 MG/ML (20ML VIAL) INF ONE (14:59)
[2024-06-16 16:20] VITALS: RESP 16
[2024-06-16 16:44] VITALS: PULSE 75
[2024-06-16 17:09] VITALS: BP 119/50; TEMP 97.5
== END 2024-06-16 17:10 | disposition home or self-care (01) ==
LOC: JASU-SURG 05:57
PROVIDERS: ATTEND Surgery
PROC: 0JB60ZZ Excision of Chest Subcutaneous Tissue and Fascia, Open Approach (ICD-10-PCS; principal; 2024-06-16 13:00)
DX: D17.1 Benign lipomatous neoplasm of skin and subcutaneous tissue of trunk (principal)
CPT/HCPCS: 88304-TC; 94760